=== PATIENT | male | born 1950 | race Caucasian/White ===

== ENCOUNTER 2020-01-26 17:42 | Emergency (ER) | payer OTHER, BC | END 2020-01-26 18:05 | disposition home or self-care (01) | LOC: JVIRT 17:42 | DX: Z11.59 Encounter for screening for other viral diseases (principal) | CPT/HCPCS: C9803; Q3014-GT; U0003 ==

== ENCOUNTER 2020-09-12 19:27 | Emergency (ER) | payer BC, OTHER ==
[2020-09-12 20:08] VITALS: BP 153/93; PULSE 100; TEMP 99.6; BMI 25.8
== END 2020-09-12 20:10 | disposition home or self-care (01) ==
LOC: FER 19:27
DX: J06.9 Acute upper respiratory infection, unspecified (principal)
CPT/HCPCS: 99281-25